=== PATIENT | female | born 2000 | race Caucasian/White ===

== ENCOUNTER 2023-06-09 13:41 | Emergency (ER) | payer OTHER ==
[~2023-06-09] VITALS: Ht 170.2 cm; Wt 59.9 kg
[2023-06-09 15:16] VITALS: BP 125/57; TEMP 98.1; O2SAT 100
[2023-06-09 16:11] LABS: BASOPHILS % (AUTO) 0.5 % (0.0-2.0); EOSINOPHILS % (AUTO) 0.5 % (0.0-6.0); HEMATOCRIT 43 % (33-45); HEMOGLOBIN 13.9 g/dL (11.5-14.8); LYMPHOCYTES % (AUTO) 13.5 % (20.0-44.0); MEAN CORPUSCULAR HEMOGLOBIN 28 PG (26.0-33.0); MEAN CORPUSCULAR HGB CONC 33 g/dl (31.0-36.0); MEAN CORPUSCULAR VOLUME 87 fL (82-100); MONOCYTES # (AUTO) 0.6 K/uL (0.1-1.30); MONOCYTES % (AUTO) 8.1 % (2.0-12.0); NEUTROPHILS # (AUTO) 5.6 K/uL (1.8-8.9); NEUTROPHILS % (AUTO) 77.4 % (43.0-81.0); PLATELET COUNT (AUTO) 224 K/uL (150-450); RED BLOOD CELL COUNT(AUTO) 4.92 MIL/uL (4.0-5.2); WHITE BLOOD COUNT (AUTO) 7.2 K/uL (4.3-11.0)
[2023-06-09 16:25] LABS: CALCIUM, SERUM 8.9 mg/dL (8.5-10.1); CREATININE 0.8 mg/dL (0.6-1.3); POTASSIUM 3.8 mmol/L (3.5-5.1)
[2023-06-09 16:37] LABS: ALBUMIN 3.7 g/dL (3.4-5.0); BILIRUBIN,TOTAL 0.9 mg/dL (0.2-1.0); TOTAL PROTEIN, SERUM 6.9 g/dL (6.4-8.2)
== END 2023-06-09 17:21 | disposition home or self-care (01) ==
LOC: ER 13:41
DX: R20.8 Other disturbances of skin sensation (principal); R10.2 Pelvic and perineal pain; Z20.822 Contact with and (suspected) exposure to COVID-19
CPT/HCPCS: 99283; 87426; 85025; 36415; 80053; 84702; C9803

== ENCOUNTER 2023-10-04 08:02 | Emergency (ER) | payer MEDICAID, OTHER ==
[~2023-10-04] VITALS: Ht 170.2 cm; Wt 57.2 kg
[2023-10-04] MEDS ORDERED: CEFP200T14 PO (08:43)
[2023-10-04 08:50] LABS: APPEARANCE,URINE SLIGHTLY CLOUDY (CLEAR); BILIRUBIN,URINE NEGATIVE (NEGATIVE); BLOOD, URINE 2+ Ery/uL (NEGATIVE); COLOR,URINE YELLOW (YELLOW); KETONES,URINE TRACE mg/dL (NEGATIVE); LEUKOCYTE ESTERASE ,URINE 2+ (NEGATIVE); NITRITE, URINE NEGATIVE (NEGATIVE); PH,URINE 6.5 (5.0-8.0); PROTEIN,URINE NEGATIVE (NEGATIVE); UGLUCOSE NEGATIVE (NEGATIVE); UROBILINOGEN,URINE 0.2 EU/dL (0.2)
[2023-10-04 08:52] LABS: ADD URINE CULTURE YES; BACTERIA,URINE Few /HPF (None Seen); PREGNANCY TEST URINE QUAL NEGATIVE (NEGATIVE); SQUAMOUS EPITHELIAL CELL,UR Rare /HPF (None Seen)
[2023-10-04 09:18] VITALS: BP 125/60; TEMP 98.2; O2SAT 98
== END 2023-10-04 09:20 | disposition home or self-care (01) ==
LOC: ER 08:11
DX: N39.0 Urinary tract infection, site not specified (principal)
CPT/HCPCS: 81001; 84703-TC; 87086-TC

== ENCOUNTER 2023-10-08 16:48 | Emergency (ER) | payer OTHER ==
[~2023-10-08] VITALS: Ht 167.6 cm; Wt 57.2 kg
[~2023-10-08 16:48] MED LIST: CEFP200T14 PO
[2023-10-08 17:07] VITALS: BP 126/72; TEMP 98.4; O2SAT 98
[2023-10-08 17:56] LABS: APPEARANCE,URINE CLEAR (CLEAR); BILIRUBIN,URINE NEGATIVE (NEGATIVE); BLOOD, URINE NEGATIVE Ery/uL (NEGATIVE); COLOR,URINE YELLOW (YELLOW); KETONES,URINE NEGATIVE (NEGATIVE); LEUKOCYTE ESTERASE ,URINE NEGATIVE (NEGATIVE); NITRITE, URINE NEGATIVE (NEGATIVE); PROTEIN,URINE NEGATIVE (NEGATIVE); UGLUCOSE NEGATIVE (NEGATIVE); UROBILINOGEN,URINE 0.2 EU/dL (0.2)
[2023-10-08 18:16] LABS: BASOPHILS % (AUTO) 0.1 % (0.0-2.0); EOSINOPHILS # (AUTO) 0.1 K/uL (0.0-0.7); EOSINOPHILS % (AUTO) 0.9 % (0.0-6.0); HEMATOCRIT 38 % (33-45); HEMOGLOBIN 12.8 g/dL (11.5-14.8); LYMPHOCYTES # (AUTO) 0.9 K/uL (0.8-4.8); MEAN CORPUSCULAR HEMOGLOBIN 29 PG (26.0-33.0); MEAN CORPUSCULAR HGB CONC 34 g/dl (31.0-36.0); MEAN CORPUSCULAR VOLUME 86 fL (82-100); MONOCYTES # (AUTO) 0.9 K/uL (0.1-1.30); NEUTROPHILS # (AUTO) 6.9 K/uL (1.8-8.9); PLATELET COUNT (AUTO) 195 K/uL (150-450); RED BLOOD CELL COUNT(AUTO) 4.43 MIL/uL (4.0-5.2); RED CELL DISTRIBUTION WIDTH 12.8 % (11.5-15.0); WHITE BLOOD COUNT (AUTO) 8.8 K/uL (4.3-11.0)
[2023-10-08 18:25] LABS: CALCIUM, SERUM 8.7 mg/dL (8.5-10.1); CREATININE 0.8 mg/dL (0.6-1.3); POTASSIUM 3.5 mmol/L (3.5-5.1)
[2023-10-08 18:36] LABS: ALBUMIN 3.3 g/dL (3.4-5.0); BILIRUBIN,DIRECT 0.1 mg/dL (0.0-0.2); BILIRUBIN,TOTAL 0.2 mg/dL (0.2-1.0); TOTAL PROTEIN, SERUM 6.5 g/dL (6.4-8.2)
== END 2023-10-08 19:17 | disposition home or self-care (01) ==
LOC: ER 17:20
DX: N39.0 Urinary tract infection, site not specified (principal); R51.9 Headache, unspecified; R10.2 Pelvic and perineal pain
CPT/HCPCS: 36415; 80048-TC; 80076-TC; 84702-TC; 85025-TC

== ENCOUNTER 2023-10-16 19:29 | Emergency (ER) | payer OTHER ==
[~2023-10-16] VITALS: Ht 167.6 cm; Wt 56.2 kg
[2023-10-16 22:33] VITALS: BP 126/75; TEMP 98; O2SAT 98
== END 2023-10-16 22:34 | disposition home or self-care (01) ==
LOC: ER 19:30
DX: Z71.1 Person with feared health complaint in whom no diagnosis is made (principal)

== ENCOUNTER 2025-03-07 19:51 | Emergency (ER) | payer MEDICAID, OTHER ==
[~2025-03-07] VITALS: Ht 177.8 cm; Wt 67.6 kg
[2025-03-07 20:47] VITALS: BP 139/72; TEMP 98.4
[2025-03-07 21:12] LABS: APPEARANCE,URINE CLEAR (CLEAR); BLOOD, URINE NEGATIVE Ery/uL (NEGATIVE); LEUKOCYTE ESTERASE ,URINE 1+ (NEGATIVE); NITRITE, URINE NEGATIVE (NEGATIVE); UGLUCOSE NEGATIVE (NEGATIVE)
[2025-03-07 21:16] LABS: SQUAMOUS EPITHELIAL CELL,UR Rare /HPF (None Seen)
[2025-03-07 21:17] LABS: ADD URINE CULTURE YES
[2025-03-07] MEDS ORDERED: CEFP200T14 PO (21:42)
[2025-03-07] MEDS ORDERED: KETOROLAC TROMETHAMINE 15 MG/ML VIAL ONE (22:26)
[2025-03-07] MEDS ORDERED: ACETAMINOPHEN ES 500 MG TABLET ONE (22:31)
[2025-03-07] MEDS: ACETAMINOPHEN 325 MG TABLET PO ONE (22:31)
[2025-03-07] MEDS: KETOROLAC TROMETHAMINE 15 MG/ML VIAL IM ONE (22:31)
[2025-03-07] MEDS: ACETAMINOPHEN ES 500 MG TABLET PO ONE (22:33)
[2025-03-07 22:34] VITALS: O2SAT 98
== END 2025-03-07 22:35 | disposition home or self-care (01) ==
LOC: ER 19:56
DX: N39.0 Urinary tract infection, site not specified (principal); M41.9 Scoliosis, unspecified; Z79.899 Other long term (current) drug therapy
CPT/HCPCS: 99283; 81001; J1885; 87086-TC